=== PATIENT | female | born 1950 | race Caucasian/White ===

== ENCOUNTER → 2020-07-02 | Outpatient (CLI) | payer MEDICARE, BC ==
--- NOTE | 2020-07-03 17:07 | RAD ---
BILATERAL SCREENING MAMMOGRAM History: Routine screening. Comparison: 04/16/2016, 06/30/2017, 06/28/2018. Technique: Routine bilateral digital mammogram views were obtained. Findings: Breast Tissue Density B : There are scattered areas of fibroglandular density. There are no dominant masses, suspicious microcalcifications, or architectural distortion. IMPRESSION: No mammographic evidence of malignancy. Recommend routine screening. BI-RADS category 1: Negative. The images were reviewed with computer aided detection. Patient information is entered into the reminder system with a target due date for the next screening mammogram. Mammography is the most sensitive method for finding small breast cancers, but it does not detect them all and is not a substitute for careful clinical examination. A negative mammogram does not negate a clinically suspicious finding and should not result in delay in biopsying a clinically suspicious abnormality. "Our facility is accredited by the [employer] Mammography [employer]." Electronically signed by: Rikki Sharma MD (07/03/2020 5:04 PM) [id number]
== END | disposition home or self-care (01) ==
LOC: MAMMO 09:47
PROVIDERS: ATTEND Family Medicine
DX: Z12.31 Encounter for screening mammogram for malignant neoplasm of breast (principal)
CPT/HCPCS: 77067

== ENCOUNTER → 2021-12-10 | Outpatient (CLI) | payer MEDICARE, BC ==
--- NOTE | 2021-12-10 11:06 | RAD ---
EXAM: Renal sonogram. HISTORY: Ureteral obstruction. Chronic renal disease. TECHNIQUE: Sonographic imaging the kidneys and bladder was performed. COMPARISON: None. FINDINGS: The kidneys are normal in size. There is a 4.2 cm simple left renal cyst along the left upp er pole. No solid renal lesion is seen. There is no hydronephrosis. The bladder is empty due to the p ost void status the patient. The inferior vena cava is obscured. The proximal aorta is obscured. The remainder the aorta is normal in caliber. IMPRESSION: 1. 4.2 cm simple left renal cyst. 2. No acute sonographic finding. Electronically signed by: Pinky Cheng MD (12/10/2021 11:03 AM) [id number]
== END ==
LOC: US 10:06
PROVIDERS: ATTEND Family Medicine
DX: N28.1 Cyst of kidney, acquired (principal); N18.31 Chronic kidney disease, stage 3a; Z87.448 Personal history of other diseases of urinary system
CPT/HCPCS: 76770